=== PATIENT | female | born 1995 | race Caucasian/White ===

== ENCOUNTER → 2020-02-18 | Outpatient (CLI) | payer OTHER | END | disposition home or self-care (01) | LOC: LAB 15:02 | PROVIDERS: ATTEND Internal Medicine Pulmonary Disease | DX: U07.1 COVID-19 (principal) | CPT/HCPCS: C9803; U0003 ==

== ENCOUNTER 2020-03-20 17:48 | Emergency (ER) | payer SELFPAY ==
[~2020-03-20] VITALS: Ht 172.7 cm; Wt 86.0 kg
[2020-03-20 18:00] VITALS: BP 131/96
--- NOTE | 2020-03-20 18:25 | PHYS DOC ---
Past Medical History Past Medical History: Other Additional Past Medical Histor: tinea versicolor Past Surgical History: No Surgical History Smoking Status: Current Every Day Smoker Additional Information: vapes Alcohol Use: Rarely General Adult EDM: Chief Complaint: SUNBURN HPI: HPI: Patient is a 24 year old to the emergency department with complaints of sunburn to the bilateral upper extremities, chest, upper back, face, and neck for the last 3 days. Patient states was outside in the sun taking photos for several hours 3 days ago. She was topless at the time and was not wearing any sunscreen. She reports that earlier today she felt nauseated and dizzy and she vomited once. She denies any fever, cough, shortness of breath, body aches, fatigue, diarrhea, abdominal pain, or headache. She describes her pain as a constant burning sensation she currently rates the pain 8 out of 10 on the pain scale, she denies any radiation of the pain, the pain is worse with palpation. Patient states she has tried [id number] aloe vera and Tylenol with no relief in her discomfort. Review of Systems: Review of Systems: Constitutional: Denies fever; reports chills Eyes: Denies change in visual acuity. [] HENT: Denies nasal congestion or sore throat. [] Respiratory: Denies cough or shortness of breath. [] Cardiovascular: Denies chest pain or edema. [] GI: Denies abdominal pain; see HPI : Denies dysuria, or hematuria; reports decreased urinary frequency. [] Musculoskeletal: Denies back pain or joint pain. [] Integument: See HPI Neurologic: Denies headache Lymphatic: Denies swollen glands. [] Psychiatric: Denies depression or anxiety. [] Heart Score: Risk Factors: Risk Factors: DM, Current or recent (<one month) smoker, HTN, HLP, family history of CAD, obesity. Risk Scores: Score 0 - 3: 2.5% MACE over next 6 weeks - Discharge Home Score 4 - 6: 20.3% MACE over next 6 weeks - Admit for Clinical Observation Score 7 - 10: 72.7% MACE over next 6 weeks - Early Invasive Strategies Allergies: Allergies: Allergies Coded Allergies Type Severity Reaction Last Updated Verified No Known Drug Allergies 03/20/20 No Physical Exam: PE: Constitutional: Well developed, well nourished, no acute distress, non-toxic appearance. [] HENT: Normocephalic, atraumatic, bilateral external ears normal, nose normal. [] Eyes: PERRLA, EOMI, conjunctiva normal, no discharge. [] Neck: Normal range of motion, no stridor. [] Cardiovascular:Heart rate regular tachycardic rhythm Lungs & Thorax: Respirations even and unlabored, no retractions, no respiratory distress, lungs CTA Skin: Blanchable erythema consistent with first-degree sunburn noted to bilateral upper extremities, upper chest, bilateral breast, face, and upper back without blistering or drainage; lips and mucous membranes are noted to be dry Extremities: No cyanosis, ROM intact, no edema. [] Neurologic: Alert and oriented X 3, no focal deficits noted. [] Psychologic: Affect normal, judgement normal, mood normal. [] Current Patient Data: Vital Signs: Vital Signs Date Time Temp Pulse Resp B/P (MAP) Pulse Ox O2 Delivery O2 Flow Rate FiO2 03/20/20 18:00 98.3 125 16 131/96 (108) 98 Room Air 98.3 EKG: EKG: [] Radiology/Procedures: Radiology/Procedures: [] Course & Med Decision Making: Course & Med Decision Making Pertinent Labs and Imaging studies reviewed. (See chart for details) [] Dragon Disclaimer: Dragon Disclaimer: This electronic medical record was generated, in whole or in part, using a voice recognition dictation system. Departure Departure Impression: Primary Impression: Sunburn of first degree Additional Impression: Nausea and vomiting Qualified Codes: R11.2 - Nausea with vomiting, unspecified Disposition: 01 HOME, SELF-CARE Condition: STABLE Referrals: NO PCP (PCP) Patient Instructions: Sunburn, [id number] Additional Instructions: Take Tylenol or ibuprofen as needed for discomfort. Continue use of aloe vera gel as needed. Make sure that you wear sunscreen when you are out in the sun. Follow-up with your primary care doctor as needed, return to the ER if symptoms worsen. Justicifation of Admission Dx: Justifications for Admission: Justification of Admission Dx: N/A PRISCILLA MALIK APRN Mar 20, 2020 18:25
[2020-03-20] MEDS ORDERED: KETOROLAC 30 MG/ML VIAL. IV ONE (18:45)
[2020-03-20] MEDS ORDERED: IV NORMAL SALINE 1000ML BAG 1,000 ML IV ONE (18:45)
[2020-03-20 19:19] LABS: BILIRUBIN,URINE SMALL (NEG); CLARITY,URINE CLOUDY; COLOR,URINE YELLOW; NITRITE,URINE NEGATIVE (NEG); PROTEIN,URINE NEGATIVE (NEG-TRACE); UROBILINOGEN,URINE 0.2 mg/dL (0.2 mg/dL)
[2020-03-20 19:25] LABS: BACTERIA,URINE MANY /HPF (0-FEW); RBC,URINE OCC /HPF (0-2); SQUAMOUS EPITHELIAL CELL,UR MANY /LPF
[2020-03-20 19:47] LABS: CALCIUM 8.5 mg/dL (8.5-10.1); CREATININE 0.7 mg/dL (0.6-1.0); GFR 103.7; POTASSIUM 3.7 mmol/L (3.5-5.1)
== END 2020-03-20 20:29 | disposition home or self-care (01) ==
LOC: ER 17:48
DX: L55.0 Sunburn of first degree (principal); R11.2 Nausea with vomiting, unspecified; R42 Dizziness and giddiness
CPT/HCPCS: 36415; 80048; 81001; 87086; 96361; 96374; 99283; J1885; J7030

== ENCOUNTER 2021-02-26 07:34 | Emergency (ER) | payer SELFPAY ==
[~2021-02-26] VITALS: Ht 172.7 cm; Wt 90.1 kg
[2021-02-26 08:54] LABS: BILIRUBIN,URINE NEGATIVE (NEG); CLARITY,URINE CLEAR; COLOR,URINE YELLOW
[2021-02-26 08:55] LABS: BACTERIA,URINE FEW /HPF (0-FEW); NITRITE,URINE NEGATIVE (NEG); PROTEIN,URINE TRACE mg/dL (NEG-TRACE); RBC,URINE 0 /HPF (0-2); UROBILINOGEN,URINE 0.2 mg/dL (0.2 mg/dL); WBC,URINE >40 /HPF (0-4)
[2021-02-26] MEDS ORDERED: CEPH500T PO (09:23)
--- NOTE | 2021-02-26 09:33 | ED.ADGEN ---
Past Medical History Past Medical History: Other Additional Past Medical Histor: tinea versicolor Past Surgical History: No Surgical History Smoking Status: Current Every Day Smoker Alcohol Use: Rarely General Adult EDM: Chief Complaint: PAIN ON URINATION HPI: HPI: Patient is a 25-year-old female who presents to the emergency room complaining of dysuria, urinary frequency, dark urine since the eighth of this month. Patient states that symptoms have progressively been getting worse. She states yesterday they were unbearable so she came into the emergency room today. She denies any fevers, chills, sweats, nausea, vomiting. Review of Systems: Review of Systems: Complete ROS is negative unless otherwise documented in HPI Allergies: Allergies: Allergies Coded Allergies Type Severity Reaction Last Updated Verified No Known Drug Allergies 02/26/21 No Physical Exam: PE: General: Awake, alert, NAD. Well Nourished, well hydrated. Cooperative HEENT: Atraumatic, EOMI, PERRL, airway patent, moist oral mucosa Neck: Supple, trachea midline Respiratory: CTA bilaterally, normal effort, no wheezing/crackles CV: RRR, no murmur, cap refill <2 GI: Soft, nondistended, nontender, no masses MSK: No obvious deformities Skin: Warm, dry, intact Neuro: A&O x3, speech NL, sensory and motor grossly intact, no focal deficits Psych: Normal affect, normal mood, not suicidal or homicidal Current Patient Data: Labs: Laboratory Tests Test 02/26/21 07:55 02/26/21 08:05 Urine Collection Type Void Urine Color Yellow Urine Clarity Clear Urine pH 6.0 (<5.0-8.0) Urine Specific [place] 1.030 (1.000-1.030) Urine Protein Trace mg/dL (NEG-TRACE) Urine Glucose (UA) Negative mg/dL (NEG) Urine Ketones (Stick) Negative mg/dL (NEG) Urine Blood Small (NEG) Urine Nitrite Negative (NEG) Urine Bilirubin Negative (NEG) Urine Urobilinogen Dipstick 0.2 mg/dL (0.2 mg/dL) Urine Leukocyte Esterase Small (NEG) Urine RBC 0 /HPF (0-2) Urine WBC >40 /HPF (0-4) Urine Squamous Epithelial Cells Few /LPF Urine Bacteria Few /HPF (0-FEW) Urine Mucus Marked /LPF POC Urine HCG, Qualitative Hcg negative (Negative) Vital Signs: Vital Signs Date Time Temp Pulse Resp B/P (MAP) Pulse Ox O2 Delivery O2 Flow Rate FiO2 02/26/21 07:59 98.6 86 18 137/79 (108) 98 Room Air 98.6 EKG: EKG: [] Heart Score: C/O Chest Pain: N/A Risk Factors: Risk Factors: DM, Current or recent (<one month) smoker, HTN, HLP, family history of CAD, obesity. Risk Scores: Score 0 - 3: 2.5% MACE over next 6 weeks - Discharge Home Score 4 - 6: 20.3% MACE over next 6 weeks - Admit for Clinical Observation Score 7 - 10: 72.7% MACE over next 6 weeks - Early Invasive Strategies Radiology/Procedures: Radiology/Procedures: [] Course & Med Decision Making: Course & Med Decision Making Pertinent Labs and Imaging studies reviewed. (See chart for details) Patient is a 25-year-old female who presents to the emergency room with UTI symptoms. UA does show white blood cells. Discussed concerns for possible gonorrhea and chlamydia. Patient denies any chance that this could be the cause of her symptoms. We will treat her for UTI. We will send gonorrhea and Chlamydia testing. Patient does not have any signs of sepsis. Patient's test results and vitals while in the ED were fully reviewed and discussed with the patient. Patient is stable and at this time does not need admission to the hospital. We have discussed strict return precautions and the importance of following up with their Primary Care Physician. Patient stated understanding and was given an opportunity to ask any questions. Patient is in agreement with plan. Gera Disclaimer: Gera Disclaimer: This electronic medical record was generated, in whole or in part, using a voice recognition dictation system. Departure Departure Impression: Primary Impression: UTI (urinary tract infection) Disposition: HOME / SELF CARE / HOMELESS Condition: STABLE Referrals: NO PCP (PCP) Patient Instructions: Urinary Tract Infection Scripts Cephalexin (CEPHALEXIN) 500 Mg Tablet 1 TAB PO BID for 7 Days, #14 TAB Prov: MARY ALICE HANSON MD 02/26/21 MARY ALICE HANSON MD Feb 26, 2021 09:33
[2021-02-26 09:45] VITALS: BP 134/69
== END 2021-02-26 09:45 | disposition home or self-care (01) ==
LOC: ER 07:34
DX: N39.0 Urinary tract infection, site not specified (principal); F17.200 Nicotine dependence, unspecified, uncomplicated
CPT/HCPCS: 81001; 81025; 87491; 87591; 99283